=== PATIENT | female | born 1985 | race Caucasian/White ===

== ENCOUNTER 2021-02-22 06:00 | Inpatient (IN) ==
[2021-02-22] MEDS ORDERED: *HR* Nalbuphine 10 MG/ML AMPUL IV PRN (06:07)
[2021-02-22] MEDS ORDERED: Lidocaine 1% 20 ML MDV INFILT PRN (06:07)
[2021-02-22] MEDS ORDERED: Naloxone 0.4 MG/ML INJ IVP PRN (06:07)
[2021-02-22] MEDS ORDERED: Metoclopramide 10 MG/2 ML VIAL IVP PRN (06:07)
[2021-02-22] MEDS ORDERED: Ondansetron 4 MG/2 ML VIAL IVP PRN (06:07)
[2021-02-22] MEDS ORDERED: Famotidine 20 MG/2 ML VIAL IVP PRN (06:07)
[2021-02-22] MEDS ORDERED: Ringers Solution, Lactated 1,000 ML IVC SCH (06:15)
[2021-02-22] MEDS ORDERED: EPHEDrine 50 MG/ML VIAL IVP PRN (06:47)
[2021-02-22] MEDS ORDERED: Epidural Premix (fent/bupiv) 110 ML EP SCH (07:00)
[2021-02-22 07:12] LABS: Basophils % 0.3 %; Eosinophils # 0.1 K/mcL (0.0-0.6); Eosinophils % 1.3 %; Hematocrit 35.6 % (35.3-44.9); Hemoglobin 11.8 g/dL (11.5-15.4); Immature Granulocytes % 0.7 % (0-4); Lymphocytes # 1.9 K/mcL (0.6-4.6); Lymphocytes % 19.6 %; Mean Corpuscular HGB Conc 33.1 g/dL (31.6-35.5); Mean Corpuscular Hemoglobin 30.6 pg (28.0-33.3); Mean Corpuscular Volume 92.2 fL (83.0-100.0); Mean Platelet Volume 10.1 fL (9.4-12.4); Monocytes # 0.8 K/mcL (0.0-1.3); Monocytes % 8.3 %; Neutrophils # 6.9 K/mcL (1.6-8.9); Platelet Count 222 K/mcL (140-400); Red Blood Count 3.86 M/mcL (3.82-4.97); Red Cell Distribution Width 13.6 % (11.5-14.5); Segmented Neutrophils % 69.8 %; White Blood Count 9.8 K/mcL (4.3-11.1)
[2021-02-22] MEDS ORDERED: miSOPROStoL 25 MCG TABLET PO PRN (07:46)
[2021-02-22 07:49] LABS: Influenza A PCR Negative (Negative); Influenza B PCR Negative (Negative); Resp. Syncytial Virus PCR Negative (Negative)
[2021-02-22 07:50] LABS: SARS-CoV-2 by PCR (In House) Negative (Negative)
[2021-02-22] MEDS ORDERED: Oxytocin 20 units/ LR 1000 mL 20 UNIT/1,000 ML BAG IVC SCH ×2 (11:30→20:06)
[2021-02-22] MEDS ORDERED: Ondansetron ODT 4 MG TAB.RAPDIS SL PRN (20:06)
[2021-02-22] MEDS ORDERED: Measles/Mumps/Rubella Vacc 0.5 ML VIAL SQ PRN (20:06)
[2021-02-22] MEDS ORDERED: Lanolin 7 G OINT...G. TP PRN (20:06)
[2021-02-22] MEDS ORDERED: Benzocaine/Menthol 56 GM AEROSOL SPRAY TP PRN (20:06)
[2021-02-22] MEDS: Acetaminophen 325 MG TABLET PO SCH (22:40)
[2021-02-22] MEDS: Ibuprofen 600 MG TABLET PO SCH (22:44)
[2021-02-23 04:05] LABS: Basophils % 0.3 %; Eosinophils # 0.1 K/mcL (0.0-0.6); Eosinophils % 0.6 %; Hematocrit 34.3 % (35.3-44.9); Hemoglobin 11.7 g/dL (11.5-15.4); Immature Granulocytes % 0.8 % (0-4); Lymphocytes # 0.9 K/mcL (0.6-4.6); Lymphocytes % 8.8 %; Mean Corpuscular HGB Conc 34.1 g/dL (31.6-35.5); Mean Platelet Volume 9.8 fL (9.4-12.4); Monocytes # 0.8 K/mcL (0.0-1.3); Monocytes % 7.7 %; Neutrophils # 8.2 K/mcL (1.6-8.9); Platelet Count 176 K/mcL (140-400); Red Blood Count 3.77 M/mcL (3.82-4.97); Red Cell Distribution Width 13.4 % (11.5-14.5); Segmented Neutrophils % 81.8 %
[2021-02-23] MEDS: Acetaminophen 325 MG TABLET PO SCH (05:07)
[2021-02-23] MEDS: Ibuprofen 600 MG TABLET PO SCH (05:08)
[2021-02-23] MEDS ORDERED: PRENATAL 1 MG PO SCH (09:00)
[2021-02-23] MEDS ORDERED: Prenatal Vit/FA 1 EACH TABLET PO SCH (09:00)
[2021-02-23 12:11] VITALS: BP 138/82; PULSE 115; TEMP 97.9; O2SAT 99
== END 2021-02-23 15:56 | disposition home or self-care (01) | DRG 807 ==
LOC: 1NENULAB 06:02 → 1NENUOBS 19:47
PROVIDERS: ADMIT Obstetrics & Gynecology; ATTEND Obstetrics & Gynecology